=== PATIENT | male | born 2000 | race Caucasian/White ===

== ENCOUNTER 2023-08-08 12:44 | Emergency (ER) | payer OTHER ==
[~2023-08-08] VITALS: Ht 170.1 cm; Wt 74.8 kg
[2023-08-08] MEDS ORDERED: CEPHALEXIN500 M1 PO (13:32)
== END 2023-08-08 13:09 | disposition home or self-care (01) ==
LOC: ED 12:44
DX: S61.215A Laceration without foreign body of left ring finger without damage to nail, initial encounter (principal); W26.0XXA Contact with knife, initial encounter; Y93.89 Activity, other specified; Y92.69 Other specified industrial and construction area as the place of occurrence of the external cause; Y99.0 Civilian activity done for income or pay